=== PATIENT | male | born 1950 | race Caucasian/White ===

== ENCOUNTER 2017-01-01 18:02 | Emergency (ER) | payer BC ==
[2017-01-01 18:19] LABS: Basophils % (Auto) 0.5 % (0.0-1.8); Eosinophils % (Auto) 4.7 % (0.0-4.3); Hematocrit 36.9 % (35.5-45.6); Hemoglobin 11.8 gm/dl (11.8-15.2); Mean Corpuscular HGB Conc 32 % (32-34); Mean Corpuscular Volume 78 fl (84-94); Platelet Count 137 K/mm3 (140-440); Red Blood Count 4.75 M/mm3 (3.65-5.03); Red Cell Distribution Width 13.9 % (13.2-15.2); White Blood Count 10.3 K/mm3 (4.5-11.0)
--- NOTE | 2017-01-01 18:20 | Emergency Department Report ---
ED Neuro Deficit HPI - General Stated Complaint: CVA Time Seen by Provider: 01/01/17 18:13 Source: family Mode of arrival: Stretcher - History of Present Illness Initial Comments: Cc 6-year-old male with past medical history of hypertension, TIA presenting to the emergency department complaining of right-sided nor deficits. Abdomen the bedside who provides history. Patient was in normal state of health until 5:11 PM when he noticed that he fell to the floor to straight forward and would not respond to their questions. When EMS arrived they noticed patient had a facial droop and right upper and lower extremity weakness. Patient was also slightly confused although his eyes were open and would not respond to questions. Patient has stable vitals on exam. -: Sudden Last Observed Normal: 05:10 Location: speech, right face, right arm, right leg, altered Presenting Symptoms: Present: Weak/Paralyzed One Side, Altered Mental Status Place: home Severity: moderate Quality: weak Improves With: none Worsens With: none On Anticoagulants: No Associated Symptoms: confusion, chest pain - Related Data Allergies/Adverse Reactions: Allergies Allergy/AdvReac Type Severity Reaction Status Date / Time No Known Allergies Allergy Unverified 01/01/17 18:05 ED Review of Systems ROS: Stated complaint: CVA Other details as noted in HPI Comment: Unobtainable due to pts medical conditions (pt unable to speak, does not appear to understand questions) ED Neuro Physical Exam - General General appearance: alert Suspected Stroke: Yes - Head Head exam: Present: atraumatic, normocephalic - Eye Eye exam: Present: PERRL, EOMI - Neck Neck exam: Present: normal inspection, tenderness - Respiratory Respiratory exam: Present: normal lung sounds bilaterally. Absent: respiratory distress, wheezes - Cardiovascular Cardiovascular Exam: Present: regular rate, normal rhythm - GI/Abdominal GI/Abdominal exam: Present: soft. Absent: distended, tenderness - Extremities Exam Extremities exam: Present: other (right upper extremity weakness ) - Neurological Exam Neurological exam: Absent: oriented X3 - NIHSS Assessment Interval: Baseline 1a. Level of Consciousness: alert 1b. LOC Questions: answers no questions correctly 1c. LOC Commands: performs no tasks correctly 2. Best Gaze: normal 3. Visual: no visual loss 4. Facial Palsy: partial paralysis 5b. Motor Arm Right: no gravity effort 5a. Motor Arm Left: no drift 6a. Motor Leg Left: no drift 6b. Motor Leg Right: no gravity effort 7. Limb Ataxia: amputation 8. Sensory: normal 9. Best Language: severe aphasia 10. Dysarthria: severe dysarthria 11. Extinction/Inattention: visual/tactile inattention ED Course Vital Signs 01/01/17 01/01/17 01/01/17 18:37 18:43 18:45 Temperature 99.0 F Pulse Rate 50 L 52 L Respiratory 18 12 Rate Blood Pressure 102/54 102/51 100/53 Blood Pressure 102/54 [Left] O2 Sat by Pulse 100 100 Oximetry 01/01/17 01/01/17 01/01/17 18:56 19:00 19:15 Temperature Pulse Rate 48 L 50 L Respiratory 16 13 17 Rate Blood Pressure 114/57 122/65 Blood Pressure [Left] O2 Sat by Pulse 100 100 100 Oximetry 01/01/17 01/01/17 19:30 19:46 Temperature Pulse Rate 53 L 48 L Respiratory 11 L 16 Rate Blood Pressure 119/68 111/57 Blood Pressure [Left] O2 Sat by Pulse 100 92 Oximetry - Reevaluation(s) Reevaluation #1: 01/01/17 18:46 Patient results was lost with radiology system because the [facility] has lost internet acces, once it is up they state they will send the results over to me. I have reviewed the CT scan and I do not see acute hemorrhage therefore I will order TPA. I have told the nurse not to administer TPA until we get the official results from RADIOLOGY the [facility]. Tele neurology will be paged. 01/02/17 03:00 Reevaluation #2: 01/01/17 18:[address] Littlejohn will see pt on the monitor and offer recommendation 01/01/17 18:57 01/02/17 03:02 01/02/17 03:02 Reevaluation #3: 01/01/17 18:58 pt family states he is on Eliquis blood thinner therefore is not a TPA candidate. Dr. Littlejohn neurology aware and agrees. i will inform [facility] that patient is in ED and may be a candidate for thrombolysis 01/02/17 03:03 01/02/17 03:03 Reevaluation #4: 01/01/17 19:30 Dr HANNA neurology interventionalists has accepted the patient to [facility] neuro ICU for possible thrombectomy. EMS called to transport pt, weather conditions make it unsuitable for flight 01/02/17 03:03 Reevaluation #5: 01/01/17 19:[address] Hubbard recommends fluid bolus. 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0-0.4) K/mm3 Baso # 0.1 (0.0-0.1) K/mm3 Seg Neutrophils % 67.9 (40.0-70.0) % Seg Neutrophils # 7.0 (1.8-7.7) K/mm3 PT 14.4 (12.2-14.9) Sec. INR 1.13 (0.87-1.13) APTT 30.5 (24.2-36.6) Sec. Thrombin Time (15.1-19.6) Sec. Sodium 135 L (137-145) mmol/L Potassium 4.2 (3.6-5.0) mmol/L Chloride 98.9 (98-107) mmol/L Carbon Dioxide 24 (22-30) mmol/L Anion Gap 16 mmol/L BUN 15 (9-20) mg/dL Creatinine 1.0 (0.8-1.5) mg/dL Estimated GFR > 60 ml/min BUN/Creatinine Ratio 15.00 % Glucose 95 (75-100) mg/dL Calcium 9.1 (8.4-10.2) mg/dL Troponin T < 0.010 (0.00-0.029) ng/mL TSH (0.270-4.200) mlU/mL Free T4 (0.76-1.46) ng/dL Thyroxine (T4) (4.0-12.0) ug/dL 01/01/17 01/01/17 Range/Units 18:05 18:05 WBC (4.5-11.0) K/mm3 RBC (3.65-5.03) M/mm3 Hgb (11.8-15.2) gm/dl Hct (35.5-45.6) % MCV (84-94) fl MCH (28-32) pg MCHC (32-34) % RDW (13.2-15.2) % Plt Count (140-440) K/mm3 Lymph % (Auto) (13.4-35.0) % [place] % (Auto) (0.0-7.3) % Eos % (Auto) (0.0-4.3) % Baso % (Auto) (0.0-1.8) % Lymph # (1.2-5.4) K/mm3 [place] # (0.0-0.8) K/mm3 Eos # (0.0-0.4) K/mm3 Baso # (0.0-0.1) K/mm3 Seg Neutrophils % (40.0-70.0) % Seg Neutrophils # (1.8-7.7) K/mm3 PT (12.2-14.9) Sec. INR (0.87-1.13) APTT (24.2-36.6) Sec. Thrombin Time 15.1 (15.1-19.6) Sec. Sodium (137-145) mmol/L Potassium (3.6-5.0) mmol/L Chloride (98-107) mmol/L Carbon Dioxide (22-30) mmol/L Anion Gap mmol/L BUN (9-20) mg/dL Creatinine (0.8-1.5) mg/dL Estimated GFR ml/min BUN/Creatinine Ratio % Glucose (75-100) mg/dL Calcium (8.4-10.2) mg/dL Troponin T (0.00-0.029) ng/mL TSH 0.989 (0.270-4.200) mlU/mL Free T4 1.18 (0.76-1.46) ng/dL Thyroxine (T4) 6.4 (4.0-12.0) ug/dL - Radiology Data Radiology results: report reviewed, image reviewed CT head: No evidence of acute infarct or intracranial hemorrhage. Dr WONG. 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 DR WONG - Medical Decision Making 66-year-old male presenting to the emergency department with CVA. She does not keep a candidate secondary to Eliquis used for previous NV. Patient will be transferred to [facility] for possible thrombectomy with the neuro interventionalist. Patient family is at bedside and was kept updated entire treatment plan. - Differential Diagnosis hypoglycemia - Thrombolytic Inclusion/Exclusion Thrombolytic Contraindications: Patient on Anticoagulants Critical Care Time: Yes Critical care time in (mins) excluding proc time.: 60 Critical care attestation.: If time is entered above; I have spent that time in minutes in the direct care of this critically ill patient, excluding procedure time. Critical Care Time: 60 minutes of critcal care time at : patient's bedside, discussing with consults , educating family ED Disposition Clinical Impression: CVA (cerebral vascular accident) Disposition: DC/TX-[id number] ANOTHER TYPE HLTHCARE Is pt being admited?: No Does the pt Need Aspirin: No Condition: Stable Referrals: PRIMARY CARE, [Primary Care Provider] - 3-5 Days
[2017-01-01 18:22] LABS: Mean Corpuscular Hemoglobin 25 pg (28-32)
[2017-01-01 18:29] LABS: INR 1.13 (0.87-1.13)
[2017-01-01 18:30] LABS: Partial Thromboplastin Time 30.5 Sec. (24.2-36.6)
[2017-01-01 18:32] LABS: Anion Gap 16 mmol/L; Blood Urea Nitrogen 15 mg/dL (9-20); Calcium 9.1 mg/dL (8.4-10.2); Carbon Dioxide 24 mmol/L (22-30); Chloride 98.9 mmol/L (98-107); Glucose 95 mg/dL (75-100); Potassium 4.2 mmol/L (3.6-5.0); Sodium 135 mmol/L (137-145)
[2017-01-01] MEDS ORDERED: ACTIVASE IV ONE ×2 (18:43)
[2017-01-01] MEDS ORDERED: NACL 0.9% IV ONE (18:43)
--- NOTE | 2017-01-01 18:52 | Cat Scan Report ---
FINAL REPORT EXAM: CT ANGIO HEAD HISTORY: concern for CVA TECHNIQUE: CT angiography of the head with 100 mL of Omnipaque 350 contrast intravenously. Axial thin-section images with sagittal and coronal reconstructions. 3D renderings also obtained. PRIORS: None. FINDINGS: The bilateral internal carotid arteries opacify normally. There is only faint opacification of the left middle cerebral artery. The left MCA peripheral branches are only minimally opacified and appear attenuated. The right middle cerebral artery opacifies and appears normal. The bilateral anterior cerebral arteries and the [place] appear normal. The vertebrobasilar appears normal. The bilateral posterior cerebral arteries appear normal. No aneurysms are demonstrated. 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
--- NOTE | 2017-01-01 18:52 | Cat Scan Report ---
FINAL REPORT EXAM: CT HEAD/BRAIN WO CON HISTORY: neuro deficits \T\lt; 6hrs or sx present upon awakening TECHNIQUE: Contiguous axial images of the head were obtained without the use of intravenous contrast. PRIORS: None. FINDINGS: There is bilateral periventricular deep white matter lucency and patchy lucency in the right parietal lobe and left basal ganglia consistent with chronic microvascular ischemic disease. There is no evidence of acute infarct or intracranial hemorrhage. There is no mass lesion or mass effect. There are no abnormal extra-axial fluid collections. The ventricles and sulci are appropriate for age. The visualized skull and orbits are unremarkable. The visualized paranasal sinuses are clear. IMPRESSION: 1. No evidence of acute infarct or intracranial hemorrhage. 2. White matter lucency consistent with chronic microvascular ischemic disease.
[2017-01-01] MEDS ORDERED: NACL 0.9% 1000 ML 1,000 ML IV ONE ×2 (19:13→19:44)
--- NOTE | 2017-01-01 19:20 | Cat Scan Report ---
FINAL REPORT EXAM: CT ANGIOGRAM HEAD NECK W AND/OR WO CONTRAST HISTORY: cva TECHNIQUE: Serial axial images through the neck and head during intravenous administration of 100 milliliters Omnipaque 350 contrast with coronal and sagittal reconstruction PRIORS: Noncontrast head CT 01/01/2017 FINDINGS: CT angiogram head: There is no midline shift. Lateral ventricles are normal in size and configuration. Basilar cisterns are patent. The vertebrobasilar system is patent. There is a dominant left vertebral artery. Posterior cerebral arteries are patent bilaterally. There is a filling defect in the left M1 segment extending to the M1 bifurcation. This measures approximately 13 millimeters in length. There is diminished opacification of the branches of the left middle cerebral artery. Right middle cerebral artery is patent, as are the anterior cerebral arteries. Mucosal thickening is seen in left maxillary sinus. No acute osseous abnormality is identified. CT angiogram neck: Orbits appear normal and symmetric. Mucosal thickening is seen in left maxillary sinus. Periapical lucency is seen in the left side of the maxilla. Dental caries are noted. There are degenerative changes in the spine. There is mild atelectasis in the dependent portion of the lungs. The thyroid gland, submandibular glands and parotid glands appear within normal limits. The common carotid arteries and internal carotid arteries appear widely patent. Vertebral arteries are patent bilaterally. IMPRESSION: 1. There is evidence of thromboembolism to the left M1 segment. There is a 13 millimeter filling defect in the left M1 segment extending to the M1 bifurcation. There is diminished opacification of the middle cerebral artery branches on the left side distal to this. 2. There is not evidence of flow-limiting stenosis in the common carotid arteries or internal carotid arteries. 3. Dental caries are noted. Periapical lucency in the left side of the maxilla could indicate infection. Report called to Dr. Lozano at time of interpretation.
[2017-01-01 19:59] VITALS: BP 111/57
--- NOTE | 2017-01-02 08:59 | XRay Report ---
Single view chest: History: CVA. Findings: Cardiomegaly. Trachea is midline. A stable pacemaker. No consolidation, pneumothorax or pleural effusion. Impression: Cardiomegaly. No acute lung changes.
== END 2017-01-01 20:54 | disposition other institution (70) ==
LOC: ED 18:02
DX: I63.9 Cerebral infarction, unspecified (principal); I10 Essential (primary) hypertension; Z86.73 Personal history of transient ischemic attack (TIA), and cerebral infarction without residual deficits
CPT/HCPCS: 36415; 70450; 70496; 70498; 71010; 80048; 84436; 84439; 84443; 84484; 85025; 85610; 85670; 85730; 93005; 93010; 96360; 99291; J7030; Q9967